=== PATIENT | female | born 1970 | race American Indian/Alaskan Native ===

== ENCOUNTER 2016-09-18 11:24 | Emergency (ER) | payer BC ==
[2016-09-18 12:08] LABS: Basophils % (Auto) 0.8 % (0.0-1.8); Eosinophils % (Auto) 1.6 % (0.0-4.3); Hematocrit 35.8 % (30.3-42.9); Mean Corpuscular HGB Conc 33 % (30-34); Mean Corpuscular Hemoglobin 27 pg (28-32); Mean Corpuscular Volume 81 fl (79-97); Platelet Count 293 K/mm3 (140-440); Red Blood Count 4.42 M/mm3 (3.65-5.03); Red Cell Distribution Width 17.1 % (13.2-15.2); White Blood Count 8.7 K/mm3 (4.5-11.0)
[2016-09-18 12:53] LABS: Anion Gap 22 mmol/L; Blood Urea Nitrogen 10 mg/dL (7-17); Calcium 9.1 mg/dL (8.4-10.2); Carbon Dioxide 21 mmol/L (22-30); Chloride 101.8 mmol/L (98-107); Glucose 105 mg/dL (65-100); Potassium 4.1 mmol/L (3.6-5.0); Sodium 141 mmol/L (137-145)
--- NOTE | 2016-09-18 13:26 | XRay Report ---
Chest 2 views: History: Chest pain. Findings: Normal cardiomediastinal silhouette. Trachea is midline. No consolidation, pneumothorax or pleural effusion. Impression: No acute cardiopulmonary findings.
[2016-09-18] MEDS ORDERED: BABY ASPIRIN PO ONE (18:12)
--- NOTE | 2016-09-18 19:39 | Emergency Department Report ---
HPI - General Chief Complaint: Chest Pain Time Seen by Provider: 09/18/16 17:48 - HPI HPI: This is a 45-year-old Afro-[place] female presents to the emergency department with a 2 week history of some left-sided chest discomfort. Yesterday she began feeling like someone was "putting an axe in my chest" and it radiated toward the left arm and jaw. She denies any shortness breath, nausea, vomiting or diaphoresis. The pain is intermittent. She took ibuprofen and an aspirin yesterday with some transient relief. She has a history of hypertension and high cholesterol. No recent travel or sick contacts at home. Her primary care doctor is Dr Armstrong. ED Past Medical Hx - Past Medical History Hx Hypertension: Yes Additional medical history: High Cholesterol - Surgical History Past Surgical History?: Yes Additional Surgical History: Tubal Ligation - Social History Smoking Status: Current Every Day Smoker Substance Use Type: Alcohol ED Review of Systems ROS: Stated complaint: CHEST PAIN Other details as noted in HPI Comment: All other systems reviewed and negative Constitutional: denies: chills, fever Eyes: denies: eye pain, eye discharge, vision change ENT: denies: ear pain, throat pain Respiratory: denies: cough, shortness of breath, wheezing Cardiovascular: chest pain. denies: palpitations, edema Gastrointestinal: denies: abdominal pain, nausea, diarrhea Genitourinary: denies: urgency, dysuria, discharge Musculoskeletal: denies: back pain, joint swelling, arthralgia Skin: denies: rash, lesions Neurological: denies: headache, weakness, paresthesias Physical Exam - Physical Exam Vital Signs: Vital Signs 09/18/16 09/18/16 09/18/16 11:36 16:34 17:39 Temperature 98.1 F 98.1 F 98 F Pulse Rate 69 81 84 Respiratory 16 18 16 Rate Blood Pressure 127/86 133/90 Blood Pressure 126/72 [Left] O2 Sat by Pulse 98 100 100 Oximetry Physical Exam: GENERAL: The patient is well-developed well-nourished. HEENT: Normocephalic. Atraumatic. Extraocular motions are intact. Patient has moist mucous membranes. Pupils equal reactive to light bilaterally. NECK: Supple. Trachea is midline. CHEST/LUNGS: Clear to auscultation. There is no respiratory distress noted. HEART/CARDIOVASCULAR: Regular. There is no tachycardia. There is no gallop rub or murmur. ABDOMEN: Abdomen is soft, nontender. Patient has normal bowel sounds. There is no abdominal distention. SKIN: Skin is warm and dry. NEURO: The patient is awake, alert, and oriented. The patient is cooperative. The patient has no focal neurologic deficits. The patient has normal speech. MUSCULOSKELETAL: There is no tenderness or deformity. There is no limitation range of motion. There is no evidence of acute injury. ED Course Vital Signs 09/18/16 09/18/16 09/18/16 11:36 16:34 17:39 Temperature 98.1 F 98.1 F 98 F Pulse Rate 69 81 84 Respiratory 16 18 16 Rate Blood Pressure 127/86 133/90 Blood Pressure 126/72 [Left] O2 Sat by Pulse 98 100 100 Oximetry ED Medical Decision Making - Lab Data Result diagrams: 09/18/16 11:49 09/18/16 11:49 - EKG Data -: EKG Interpreted by Me EKG shows normal: sinus rhythm, axis, intervals, QRS complexes, ST-T waves Rate: normal - EKG Data When compared to previous EKG there are: previous EKG unavailable Interpretation: normal EKG - Radiology Data Radiology results: report reviewed, image reviewed interpreted by me: Chest x-ray did not show any acute process. Heart is normal shape and size. No effusions. No pneumothorax. No signs of pneumonia seen. CT angiography of the chest does not show any pulmonary embolism, dissection or any acute process. - Medical Decision Making 45-year-old female presents with intermittent chest pains that worsened yesterday. She also has some intermittent leg pains. She was evaluated today with physical exam, labs, imaging and EKG. EKG is completely normal without ST elevation [place], dysrhythmia or ischemia. Labs are unremarkable other than a slightly elevated and equivocal d-dimer. She has had negative troponins 3. There are no signs of infection, electrolytes abnormalities or renal insufficiency. Chest x-ray does not show any acute process. CT angiography of the chest was done that does not show any pulmonary embolism, dissection or any acute process. Vital signs have been stable throughout her ED course. The patient has a SHANNA score of 1 if her chest pains are to be considered angina and a 0 if not. She is very low on the heart criteria. She will have a outpatient venous Doppler to rule out DVT tomorrow. If positive she will be redirected to the emergency department. If negative, patient will follow-up with her primary care doctor and has also been given a referral for cardiology for outpatient stress test. She will return to the ER with any worsening of her symptoms or any acute distress. HEART Pathway for Early Discharge in Acute Chest Pain from [employer] on 2016 All calculations should be rechecked by clinician prior to use RESULT SUMMARY: 1 points HEART Pathway Score Low risk 0.91.7% 30-day MACE Repeat troponin at 3 hours and if negative, discharge home with outpatient follow-up. INPUTS: History > 0 = Slightly suspicious EKG > 0 = Normal Age > 1 = 45-65 Risk factors > 0 = No known risk factors Initial troponin > 0 = normal limit - Differential Diagnosis [place], PE, Pneumonia, CHF Critical Care Time: No Critical care attestation.: If time is entered above; I have spent that time in minutes in the direct care of this critically ill patient, excluding procedure time. ED Disposition Clinical Impression: Chest pain Qualifiers: Chest pain type: unspecified Qualified Code(s): R07.9 - Chest pain, unspecified Disposition: DISCHARGED TO HOME OR SELFCARE Is pt being admited?: No Condition: Stable Instructions: Chest Pain (ED) Additional Instructions: Please follow-up tomorrow at the outpatient imaging portion of the hospital for a bilateral lower extremity ultrasound to rule out blood clots in your legs that we call DVTs. I have written for you a prescription to get this outpatient imaging test done. Please call the number in the morning to schedule an appointment. If it is positive, they will redirect you back to the emergency department. Otherwise, please follow-up with your primary care doctor. I have also given you a referral for a local call or contact centre team leader, Dr. Mohr, in order to follow-up regarding your intermittent chest pains and get a outpatient stress test. Return to the emergency department with any worsening of your symptoms or any acute distress. Referrals: PRIMARY CAREMD [Primary Care Provider] - DAKOTA AMANDO MOHR MD [Staff Physician] - DAKOTA Forms: Work/School Release Form(ED) Time of Disposition: 21:47
[2016-09-18] MEDS ORDERED: NACL ONE (20:02)
--- NOTE | 2016-09-18 21:29 | Cat Scan Report ---
FINAL REPORT EXAM: CT ANGIO CHEST HISTORY: CP, elevated dimer TECHNIQUE: CT chest CT angiogram with reconstructions PRIORS: None. FINDINGS: There is no evidence of filling defect within the central pulmonary vasculature to suggest the presence of acute pulmonary embolus. No evidence of mediastinal pathologic lymph node enlargement Heart and great vessels are unremarkable. The aorta is normal in caliber. No focal pulmonary infiltrate identified. No pleural fluid collection seen. No acute pulmonary abnormality noted. There is moderate to large hiatal hernia present. IMPRESSION: Hiatal hernia No CT evidence of acute pulmonary embolus
[2016-09-18 22:24] VITALS: BP 122/80
== END 2016-09-18 22:15 | disposition home or self-care (01) ==
LOC: ED 11:24
DX: R07.9 Chest pain, unspecified (principal); I10 Essential (primary) hypertension; E78.00 Pure hypercholesterolemia, unspecified; F17.200 Nicotine dependence, unspecified, uncomplicated; Z98.51 Tubal ligation status
CPT/HCPCS: 36415; 71020; 71275; 80048; 84484; 85025; 85379; 93005; 93010; 99285; Q9967

== ENCOUNTER 2016-09-20 12:39 | Outpatient (CLI) | payer BC ==
--- NOTE | 2016-09-22 07:33 | Vascular Lab Report ---
LOWER EXTREMITY VENOUS DUPLEX: REASON FOR EXAM: Pain of the lower extremities. COMMENTS ON THE RIGHT: All veins visualized are freely compressible without evidence of internal echogenicity. Flow is spontaneous and phasic throughout. COMMENTS ON THE LEFT: All veins visualized are freely compressible without evidence of internal echogenicity. Flow is spontaneous and phasic throughout. IMPRESSION: No evidence of acute or chronic deep venous thrombosis in either lower extremity.
== END 2016-09-20 12:40 | disposition home or self-care (01) ==
LOC: VAS 12:39
PROVIDERS: ATTEND Emergency Medicine
DX: M79.604 Pain in right leg (principal); M79.605 Pain in left leg
CPT/HCPCS: 93970

== ENCOUNTER 2018-11-30 12:38 | Outpatient (CLI) | payer OTHER ==
--- NOTE | 2018-12-03 11:31 | Mammography Report ---
BILATERAL DIGITAL SCREENING MAMMOGRAM WITH CAD INDICATION: Routine screening mammography. TECHNIQUE: Digital bilateral 2D mammography was obtained in the craniocaudal and mediolateral obliq ue projections. This examination was interpreted with the benefit of Computer-Aided Detection analysi s. COMPARISON: 03/25/2016 FINDINGS: Breast Density: The breasts are heterogeneously dense, which may obscure small masses. No mass, architectural distortion or suspicious calcifications. IMPRESSION:No mammographic evidence of malignancy. BI-RADS Category 1: Negative. No mammographic evidence of malignancy. Recommend routine screening m ammography in one year. A "normal" or negative report should not discourage follow up or biopsy of a clinically significant f inding. A written summary of these findings will be mailed to the patient. The patient will be entered into a mammography reporting system which will generate a reminder letter for the patient's next appointmen t at the appropriate interval. The [employer] recommends yearly mammograms starting at age 40 and continuing as l tera as a woman is in good health. Breast MRI is recommended for women with an approximate 20-25% or greater lifetime risk of breast cancer, including women with a strong family history of breast or ova josias cancer or who have been treated for Hodgkin's disease. Signer Name: Fred Anderson MD Signed: 12/03/2018 11:27 AM Workstation Name: [id number]
== END 2018-11-30 12:39 | disposition home or self-care (01) ==
LOC: MAMMO 12:38
PROVIDERS: ATTEND Internal Medicine
DX: Z12.31 Encounter for screening mammogram for malignant neoplasm of breast (principal); I10 Essential (primary) hypertension
CPT/HCPCS: 77067

== ENCOUNTER 2020-01-20 10:05 | Outpatient (CLI) | payer OTHER ==
--- NOTE | 2020-01-20 11:05 | Mammography Report ---
DIGITAL SCREENING MAMMOGRAM WITH CAD, 01/20/2020 INDICATION: Routine screening mammography. SCREENING MAMMO TECHNIQUE: Digital bilateral 2D mammography was obtained in the craniocaudal and mediolateral obliq ue projections. This examination was interpreted with the benefit of Computer-Aided Detection analysi s. COMPARISON: 11/30/2018 FINDINGS: Breast Density: There are scattered areas of fibroglandular density. There is no evidence of dominant mass, suspicious calcifications or architectural distortion in eithe r breast. Benign-appearing calcifications are seen on the left. IMPRESSION: No evidence of malignancy Follow up recommendation: Routine yearly BI-RADS Category 2: Benign. A "normal" or negative report should not discourage follow up or biopsy of a clinically significant f inding. A written summary of these findings will be mailed to the patient. The patient will be entered into a mammography reporting system which will generate a reminder letter for the patient's next appointmen t at the appropriate interval. The [employer] recommends yearly mammograms starting at age 40 and continuing as l tera as a woman is in good health. Breast MRI is recommended for women with an approximate 20-25% or greater lifetime risk of breast cancer, including women with a strong family history of breast or ova josias cancer or who have been treated for Hodgkin's disease. Signer Name: Hernan Townsend MD Signed: 01/20/2020 11:00 AM Workstation Name: [id number]
== END 2020-01-20 10:06 | disposition home or self-care (01) ==
LOC: MAMMO 10:05
PROVIDERS: ATTEND Internal Medicine
DX: Z12.31 Encounter for screening mammogram for malignant neoplasm of breast (principal); N64.89 Other specified disorders of breast
CPT/HCPCS: 77067

== ENCOUNTER 2021-02-12 13:06 | Outpatient (CLI) | payer OTHER | END 2021-02-12 13:07 | disposition home or self-care (01) | LOC: MAMMO 13:06 | DX: Z12.31 Encounter for screening mammogram for malignant neoplasm of breast (principal) | CPT/HCPCS: 77067 ==